=== PATIENT | male | born 1955 | race Caucasian/White ===

== ENCOUNTER 2022-07-06 16:18 | Emergency (ER) | payer MEDICARE, OTHER ==
[~2022-07-06] VITALS: Ht 177.8 cm; Wt 90.7 kg
[2022-07-06] MEDS ORDERED: NS IV 1000 ML 1,000 ML IV SCH (16:30)
[2022-07-06] MEDS ORDERED: CEFEPIME INJECTION 1,000 MG in NS (IVPB) 50 ML IV ONE (16:30)
[2022-07-06 16:41] LABS: BASOPHILS % (AUTO) 0 % (0-10); EOSINOPHILS # (AUTO) 0.1 10^3/uL (0.0-0.3); EOSINOPHILS % (AUTO) 2 % (0-10); HEMATOCRIT 41 % (40-54); HEMOGLOBIN 13.2 g/dL (13.3-17.7); LYMPHOCYTES # (AUTO) 1.8 10^3/uL (1.0-4.0); LYMPHOCYTES % (AUTO) 24 % (12-44); MEAN CORPUSCULAR HEMOGLOBIN 29 pg (25-34); MEAN CORPUSCULAR HGB CONC 33 g/dL (32-36); MEAN CORPUSCULAR VOLUME 90 fL (80-99); MEAN PLATELET VOLUME 10.9 fL (9.0-12.2); MONOCYTES # (AUTO) 0.8 10^3/uL (0.0-1.0); MONOCYTES % (AUTO) 11 % (0-12); NEUTROPHILS # (AUTO) 4.7 10^3/uL (1.8-7.8); NEUTROPHILS % (AUTO) 63 % (42-75); PLATELET COUNT 172 10^3/uL (130-400); WHITE BLOOD COUNT 7.5 10^3/uL (4.3-11.0)
--- NOTE | 2022-07-06 16:41 | ED Syncope ---
General Chief Complaint: Dizziness/Syncope Stated Complaint: FALL,HEAD INJ Source of Information: Patient, EMS, Family Exam Limitations: No Limitations History of Present Illness Date Seen by Provider: Jul 06, 2022 Time Seen by Provider: 16:19 Initial Comments 67-year-old male with past medical history of hypertension, hyperlipidemia, juo-bqpmzgv-uhrcnrhpt diabetes, and recent diagnosis of prostate cancer s/p robotic prostatectomy on 07/03/[address] Lopez in [place] coming in due to 2 syncopal episodes. The patient was discharged from the hospital the evening after the surgery the next day. He states he had some low blood pressures initially, but they came up prior to discharge. He has been on ciprofloxacin and will be on it for a total of a week. He is also taking hydrocodone for pain control which he had a pill earlier today. He was in the bathroom while his was emptying his Fernandes catheter bag. He was standing at this time, felt lightheaded, passed out, hit his head. His states he looked pale at that time. She sat up on the toilet after he came to, and then he had another syncopal episode. This time she was able to catch his head from hitting. He laid there until EMS arrived. They report his blood pressure was around 90/60, blood sugar 180, heart rate around 100, and oxygen saturation around 91% on room air. He states he has been feeling better from a pain perspective and thought he had been doing well prior to this episode. Denies any chest pain, shortness of breath, severe abdominal pain, nausea, vomiting, diarrhea, weakness, numbness that is focal, fever, or any other concerns. He does not take blood thinners, denies any lower extremity swelling or pain, no prior DVT or PE history, no hemoptysis. He also denies any cardiac or lung history. Allergies and Home Medications Allergies Coded Allergies: No Known Drug Allergies (Unverified , 05/20/19) Patient Home Medication List Home Medication List Reviewed: Yes Review of Systems Constitutional: No fever EENTM: no symptoms reported Respiratory: no symptoms reported Cardiovascular: syncope Gastrointestinal: no symptoms reported Genitourinary: no symptoms reported Musculoskeletal: no symptoms reported Skin: no symptoms reported Psychiatric/Neurological: See HPI All Other Systems Reviewed Negative Unless Noted: Yes Past Bydiijw-Bibpxi-Gpyxml Hx Patient Social History Tobacco Use?: No Smoking Status: Former Smoker Past Medical History Surgery/Hospitalization HX: Robotic prostatectomy, partial tongue removal, G-tube placement and later on removal Prior history of tongue cancer and currently being worked up for prostate cancer Surgeries: Yes Physical Exam Vital Signs Capillary Refill : Height, Weight, BMI Height: '" Weight: lbs. oz. kg; BMI Method: General Appearance: No Apparent Distress, WD/WN HEENT: PERRL/EOMI, Normal ENT Inspection, Pharynx Normal Neck: Full Range of Motion, Normal Inspection, Non Tender, Supple Cardiovascular: No Edema, Normal Peripheral Pulses, Tachycardia Respiratory: Chest Non Tender, Lungs Clear, Normal Breath Sounds, No Accessory Muscle Use, No Respiratory Distress Gastrointestinal: Normal Bowel Sounds, Non Tender, Soft; No Distended, No Guarding; Other (Surgical wounds appear clean, dry, intact, Fernandes is draining clear yellow urine with occasional blood) Back: Normal Inspection, No CVA Tenderness, No Vertebral Tenderness Extremities: Normal Capillary Refill, Normal Inspection, Normal Range of Motion, Non Tender, No Calf Tenderness, No Pedal Edema Neurologic/Psychiatric: Alert, Oriented x3, No Motor/Sensory Deficits, Normal Mood/Affect, 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 Cranial Nerves: Normal Hearing, Normal Speech Coordination/Gait: Normal Finger to Nose Motor/Sensory: No Motor Deficit, No Sensory Deficit, No Pronator Drift Skin: Normal Color, Warm/Dry Focused Exam Lactate Level 07/06/22 16:25: Lactic Acid Level 3.83*H Lactic Acid Level Laboratory Tests Test 07/06/22 16:25 Lactic Acid Level 3.83 MMOL/L (0.50-2.00) *H Progress/Results/Core Measures Results/Orders Lab Results Laboratory Tests Test 07/06/22 16:25 Range/Units White Blood Count 7.5 4.3-11.0 10^3/uL Red Blood Count 4.52 4.30-5.52 10^6/uL Hemoglobin 13.2 L 13.3-17.7 g/dL Hematocrit 41 40-54 % Mean Corpuscular Volume 90 80-99 fL Mean Corpuscular Hemoglobin 29 25-34 pg Mean Corpuscular Hemoglobin Concent 33 32-36 g/dL Red Cell Distribution Width 14.1 10.0-14.5 % Platelet Count 172 130-400 10^3/uL Mean Platelet Volume 10.9 9.0-12.2 fL Immature Granulocyte % (Auto) 1 % Neutrophils (%) (Auto) 63 42-75 % Lymphocytes (%) (Auto) 24 12-44 % Monocytes (%) (Auto) 11 0-12 % Eosinophils (%) (Auto) 2 0-10 % Basophils (%) (Auto) 0 0-10 % Neutrophils # (Auto) 4.7 1.8-7.8 10^3/uL Lymphocytes # (Auto) 1.8 1.0-4.0 10^3/uL Monocytes # (Auto) 0.8 0.0-1.0 10^3/uL Eosinophils # (Auto) 0.1 0.0-0.3 10^3/uL Basophils # (Auto) 0.0 0.0-0.1 10^3/uL Immature Granulocyte # (Auto) 0.0 0.0-0.1 10^3/uL Prothrombin Time 12.6 12.2-14.7 SEC INR Comment 0.9 0.8-1.4 Activated Partial Thromboplast Time 24 24-35 SEC Urine Color YELLOW Urine Clarity SLIGHTLY CLOUDY Urine pH 6.5 5-9 Urine Specific [place] 1.015 L 1.016-1.022 Urine Protein 2+ H NEGATIVE Urine Glucose (UA) 3+ H NEGATIVE Urine Ketones TRACE H NEGATIVE Urine Nitrite NEGATIVE NEGATIVE Urine Bilirubin NEGATIVE NEGATIVE Urine Urobilinogen 0.2 < = 1.0 MG/DL Urine Leukocyte Esterase 1+ H NEGATIVE Urine RBC (Auto) 3+ H NEGATIVE Urine RBC >100 H /HPF Urine WBC NONE /HPF Urine Squamous Epithelial Cells NONE /HPF Urine Crystals NONE /LPF Urine Bacteria MODERATE H /HPF Urine Casts PRESENT /LPF Urine Hyaline Casts 2-5 H /LPF Urine Mucus NEGATIVE /LPF Urine Culture Indicated NO Sodium Level 134 L 135-145 MMOL/L Potassium Level 4.0 3.6-5.0 MMOL/L Chloride Level 98 98-107 MMOL/L Carbon Dioxide Level 20 L 21-32 MMOL/L Anion Gap 16 H 5-14 MMOL/L Blood Urea Nitrogen 17 7-18 MG/DL Creatinine 0.87 0.60-1.30 MG/DL Estimat Glomerular Filtration Rate 96 BUN/Creatinine Ratio 20 Glucose Level 168 H 70-105 MG/DL Lactic Acid Level 3.83 *H 0.50-2.00 MMOL/L Calcium Level 8.9 8.5-10.1 MG/DL Corrected Calcium 9.4 8.5-10.1 MG/DL Total Bilirubin 0.6 0.1-1.0 MG/DL Aspartate Amino Transf (AST/SGOT) 20 5-34 U/L Alanine Aminotransferase (ALT/SGPT) 21 0-55 U/L Alkaline Phosphatase 104 40-136 U/L Troponin I < 0.30 <0.30 NG/ML Pro-B-Type Natriuretic Peptide 693.3 H <125.0 PG/ML Total Protein 6.1 L 6.4-8.2 GM/DL Albumin 3.4 3.2-4.5 GM/DL My Orders Orders - ETHEL FELIZ MD Ct Head/Cervical Spine Wo (07/06/22 16:28) Cbc With Automated Diff (07/06/22 16:28) Comprehensive Metabolic Panel (07/06/22 16:28) Blood Culture (07/06/22 16:28) Sputum Culture (07/06/22 16:28) Urinalysis (07/06/22 16:28) Urine Culture (07/06/22 16:28) Protime With Inr (07/06/22 16:28) Partial Thromboplastin Time (07/06/22 16:28) Ed Iv/Invasive Line Start (07/06/22 16:28) Ekg Tracing (07/06/22 16:28) Vital Signs Adult Sepsis Patie Q15M (07/06/22 16:28) O2 (07/06/22 16:28) Remove Rings In Anticipation O (07/06/22 16:28) Lactic Acid Analyzer (07/06/22 16:28) Ns Iv 1000 Ml (Sodium Chloride 0.9%) (07/06/22 16:30) Cefepime Injection (Maxipime Injection) (07/06/22 16:30) Probnp Fs (07/06/22 16:28) Troponin I Fs (07/06/22 16:28) Ct Rekha Chest/Noang Abd-Pelv W (07/06/22 16:28) Iohexol Injection (Omnipaque 350 Mg/Ml 1 (07/06/22 17:15) Received Contrast (Hold Metformin- Contr (07/06/22 17:15) Ns (Ivpb) (Sodium Chloride 0.9% Ivpb Bag (07/06/22 17:15) Heparin Drip 81860 Unit/500ml (Heparin (07/06/22 17:45) Heparin (Bolus Per Protocol) (Heparin (B (07/06/22 17:45) Initiate Heparin Full Protocol (07/06/22 17:41) Heparin Drip 60460 Unit/500ml (Heparin (07/06/22 18:10) Medications Given in ED Current Medications Medications Dose Ordered Sig/Leslye Route Start Time Stop Time Status Last Admin Dose Admin Cefepime HCl 1000 mg/Sodium Chloride 50 ml @ 100 mls/hr ONCE ONCE IV 07/06/22 16:30 07/06/22 16:59 DC 07/06/22 16:57 100 MLS/HR Iohexol 100 ml ONCE ONCE IV 07/06/22 17:15 07/06/22 17:16 DC 07/06/22 17:32 100 ML Sodium Chloride 100 ml ONCE ONCE IV 07/06/22 17:15 07/06/22 17:16 DC 07/06/22 17:32 100 ML Progress Progress Note : Progress Note 67-year-old male with above history coming in due to a syncopal episode x2. Discussed the case with his family members as well as EMS. The patient was hypotensive on presentation for EMS and for us and mildly tachycardic. He was also mildly hypoxic. Given his recent surgical history, my biggest concern would be for pulmonary embolism versus hemorrhage versus dehydration versus OK versus some other etiology. An IV was placed and basic labs were obtained including septic work-up. He was also given IV antibiotics and 1 L of IV fluids from EMS followed by [address] head and cervical spine ordered because of the fall. CTA chest ordered to rule out PE. CT abdomen pelvis also ordered given recent surgery to rule out large hemorrhage. His CTA chest on my interpretation shows multiple bilateral pulmonary emboli. The radiologist read was negative on his CT head, cervical spine, and nothing significant on the abdomen and pelvis. His CTA chest did indeed show bilateral pulmonary emboli with concerns for right heart strain. His EKG on my interpretation shows a right bundle branch block with no prior EKG to compare to. Clinically this is a massive PE given his hypotension with systolic blood pressure less than 90 here. Pressures did eventually improve after the full 2 L of IV fluids. He was given a heparin bolus followed by a drip. I contacted [facility] for transfer given he may need catheter directed thrombolysis and would need a larger center for this. Dr. Blanca Lagunas accepted him for further evaluation and management. We attempted to contact multiple flight crews, but not are available due to weather. He will go by ground EMS transport. Initial ECG Impression Date: Jul 06, 2022 Initial ECG Impression Time: 16:44 Initial ECG Rate: 98 Initial ECG Rhythm: Normal Sinus Comment Wide QRS with a right bundle branch block, no significant ST changes or T wave abnormalities, no prior EKG to compare to Diagnostic Imaging Diagonstic Imaging: CT (head, c spine, CTA chest, abd pelvis) Comments NAME: KAMLESH MCCOY [facility] REC#: [id number] PT STATUS: REG ER : 1955 PHYSICIAN: ETHEL FELIZ MD ADMIT DATE: 07/06/22/ER FS Signed Date of Exam:07/06/22 CT REKHA CHEST/NOANG ABD-PELV W INDICATION: surgery 3 days ago, hypoxic, hypotensive CTA chest, abdomen and pelvis Thin axial sections through the chest, abdomen and pelvis are obtained following intravenous contrast bolus. Multiplanar MIP images were reconstructed and reviewed. All CT scans use one or more of the following dose optimizing techniques: automated exposure control, MA and/or KvP adjustment based on patient size and exam type or iterative reconstruction. Comparison: CT of the head on same day. FINDINGS: Moderate burden acute pulmonary emboli involving the left main pulmonary artery and the bilateral segmental branches of the pulmonary artery. No associated pulmonary infarction. Subpleural reticulation within the lung bases likely representing minimal dependent atelectasis. Scarring within the lung apices. The pulmonary artery is normal in caliber. Aorta is normal. The heart is enlarged. There is evidence of right heart strain. No pericardial effusion. Included views of the abdomen demonstrates calcification within the left spleen. The osseous structures demonstrate no acute osseous findings. The liver is normal. Gallbladder is normal. Chronic calcification within the spleen. The pancreas is normal. The kidneys demonstrate normal enhancement. There is some mild left hydronephrosis. No hydronephrosis. The urinary bladder is decompressed with a Fernandes catheter. Bowel is nondistended. Normal appendix. There is trace free air within the peritoneum and moderate subcutaneous air in the abdomen. There is calcified aortoiliac atherosclerosis with chronic short segment dissection flap within the aorta. The osseous structures demonstrate no acute findings. IMPRESSION: Moderate burden pulmonary emboli involving the left main pulmonary artery diffusely involving the bilateral segmental and subsegmental branches. Enlargement of the right ventricle concerning for heart strain. Recommend correlation with cardiac enzymes. No pulmonary consolidation. Air or pneumoperitoneum and subcutaneous air may be seen with recent surgery. Recommend correlation with the surgical history and consider follow-up imaging if clinically appropriate. Dictated by: Dictated on workstation # [id number] Dict: 07/06/22 1755 Trans: 07/06/221802 [facility] [place] [id number] Interpreted by: ESTER ROBLES DO Electronically signed by: ESTER ROBLES DO 07/06/221802 [facility] [place] NAME: KAMLESH MCCOY [facility] REC#: [id number] PT STATUS: REG ER : 1955 PHYSICIAN: ETHEL FELIZ MD ADMIT DATE: 07/06/22/ER FS Signed Date of Exam:07/06/22 CT HEAD/CERVICAL SPINE WO PROCEDURE: CT head and CT cervical spine without contrast. TECHNIQUE: Multiple contiguous axial images were obtained through the brain and cervical spine without the use of intravenous contrast. Sagittal and coronal reformations through the cervical spine were then performed. Auto Exposure Controls were utilized during the CT exam to meet ALARA standards for radiation dose reduction. INDICATION: Syncopal episode. Head and neck pain. COMPARISON: None. FINDINGS: CT HEAD: No large acute territorial ischemia, mass or hemorrhage. No midline shift or mass effect. The ventricles, cortical sulci and basilar cisterns are patent and unremarkable. The calvarium is intact. The visualized paranasal sinuses are clear. CT CERVICAL SPINE: No acute fracture or dislocation is seen in the cervical spine. No focal osseous lesion. Vertebral body heights are well maintained. The craniocervical junction is well maintained. Mild degenerative changes are seen in the cervical spine with disc osteophyte complexes and uncovertebral arthropathy. Soft tissues of the neck are unremarkable. The included lungs are clear. IMPRESSION: 1. No hemorrhage or focal intra-axial mass. No CT evidence of large acute territorial ischemia. 2. No acute fracture or dislocation in the cervical spine. Dictated by: Dictated on workstation # [id number] Dict: 07/06/221742 Trans: 07/06/221752 [facility] [id number] Interpreted by: ADIRANNE DOTY DO Electronically signed by: ADRIANNE DOTY DO 07/06/221752 Critical Care Note Critical Care Start Time: 16:19 Stop Time: 18:30 Total Time (minutes) 67 Progress Patient was at significant risk for hemodynamic compromise and due to his diagnosis. I was frequently monitoring the patient, at his bedside reassessing him, discussing the case with him and his family, and discussing the case with physicians as well. All time billed for critical care was separate from procedures. Departure Impression Primary Impression: Acute massive pulmonary embolism Disposition: XFER SHT-TRM HOSP Condition: Stable Admissions Decision to Admit/Date: Jul 06, 2022 Time/Decision to Admit Time: 18:00 Transfer Transfer Reason: Exceeds level of care Transfer Facility: [facility] Method of Transfer: EMS Departure-Patient Inst. Referrals: SUDEEP VARMA APRN (PCP/Family) Primary Care Physician ETHEL FELIZ MD Jul 06, 2022 16:41
[2022-07-06 16:44] LABS: BILIRUBIN,URINE NEGATIVE (NEGATIVE); COLOR,URINE YELLOW; GLUCOSE, URINE (UA) 3+ (NEGATIVE); KETONES,URINE TRACE (NEGATIVE); LEUKOCYTE ESTERASE ,URINE 1+ (NEGATIVE); NITRITE,URINE NEGATIVE (NEGATIVE); PH,URINE 6.5 (5-9); PROTEIN,URINE 2+ (NEGATIVE)
[2022-07-06 16:48] LABS: BACTERIA,URINE MODERATE /HPF; CLARITY,URINE SLIGHTLY CLOUDY; RBC,URINE >100 /HPF
[2022-07-06 17:00] LABS: INR 0.9 (0.8-1.4); PROTHROMBIN TIME PATIENT 12.6 SEC (12.2-14.7)
[2022-07-06 17:02] LABS: ALANINE AMINOTRANSFERASE 21 U/L (0-55); ALBUMIN 3.4 GM/DL (3.2-4.5); ALKALINE PHOSPHATASE 104 U/L (40-136); BILIRUBIN,TOTAL 0.6 MG/DL (0.1-1.0); BUN/CREATININE RATIO 20; CALCIUM 8.9 MG/DL (8.5-10.1); CARBON DIOXIDE 20 MMOL/L (21-32); CHLORIDE 98 MMOL/L (98-107); CREATININE SERUM 0.87 MG/DL (0.60-1.30); GFR ESTIMATED 96; GLUCOSE 168 MG/DL (70-105); SODIUM 134 MMOL/L (135-145); TOTAL PROTEIN 6.1 GM/DL (6.4-8.2)
[2022-07-06] MEDS ORDERED: IOHEXOL 350 MG/ML 100 ML (OMNIPAQUE 350) VIAL IV ONE (17:15)
[2022-07-06] MEDS ORDERED: NS 100 ML (IVPB) BAG IV ONE (17:15)
[2022-07-06] MEDS ORDERED: HOLD METFORMIN - RECEIVED CONTRAST 20 ML VIAL IV SCH (17:15)
[2022-07-06] MEDS ORDERED: HEParin 1000 UNIT/ML (10ML VIAL) FOR BOLUS IV SCH (17:45)
[2022-07-06] MEDS ORDERED: HEParin DRIP 25000 UNIT/500ML 500 ML IV SCH (17:45)
--- NOTE | 2022-07-06 17:51 | Diagnostic Imaging Report ---
PROCEDURE: CT head and CT cervical spine without contrast. TECHNIQUE: Multiple contiguous axial images were obtained through the brain and cervical spine without the use of intravenous contrast. Sagittal and coronal reformations through the cervical spine were then performed. Auto Exposure Controls were utilized during the CT exam to meet ALARA standards for radiation dose reduction. INDICATION: Syncopal episode. Head and neck pain. COMPARISON: None. FINDINGS: CT HEAD: No large acute territorial ischemia, mass or hemorrhage. No midline shift or mass effect. The ventricles, cortical sulci and basilar cisterns are patent and unremarkable. The calvarium is intact. The visualized paranasal sinuses are clear. CT CERVICAL SPINE: No acute fracture or dislocation is seen in the cervical spine. No focal osseous lesion. Vertebral body heights are well maintained. The craniocervical junction is well maintained. Mild degenerative changes are seen in the cervical spine with disc osteophyte complexes and uncovertebral arthropathy. Soft tissues of the neck are unremarkable. The included lungs are clear. IMPRESSION: 1. No hemorrhage or focal intra-axial mass. No CT evidence of large acute territorial ischemia. 2. No acute fracture or dislocation in the cervical spine. Dictated by: Dictated on workstation # [id number]
--- NOTE | 2022-07-06 18:04 | Diagnostic Imaging Report ---
INDICATION: surgery 3 days ago, hypoxic, hypotensive CTA chest, abdomen and pelvis Thin axial sections through the chest, abdomen and pelvis are obtained following intravenous contrast bolus. Multiplanar MIP images were reconstructed and reviewed. All CT scans use one or more of the following dose optimizing techniques: automated exposure control, MA and/or KvP adjustment based on patient size and exam type or iterative reconstruction. Comparison: CT of the head on same day. FINDINGS: Moderate burden acute pulmonary emboli involving the left main pulmonary artery and the bilateral segmental branches of the pulmonary artery. No associated pulmonary infarction. Subpleural reticulation within the lung bases likely representing minimal dependent atelectasis. Scarring within the lung apices. The pulmonary artery is normal in caliber. Aorta is normal. The heart is enlarged. There is evidence of right heart strain. No pericardial effusion. Included views of the abdomen demonstrates calcification within the left spleen. The osseous structures demonstrate no acute osseous findings. The liver is normal. Gallbladder is normal. Chronic calcification within the spleen. The pancreas is normal. The kidneys demonstrate normal enhancement. There is some mild left hydronephrosis. No hydronephrosis. The urinary bladder is decompressed with a Fernandes catheter. Bowel is nondistended. Normal appendix. There is trace free air within the peritoneum and moderate subcutaneous air in the abdomen. There is calcified aortoiliac atherosclerosis with chronic short segment dissection flap within the aorta. The osseous structures demonstrate no acute findings. IMPRESSION: Moderate burden pulmonary emboli involving the left main pulmonary artery diffusely involving the bilateral segmental and subsegmental branches. Enlargement of the right ventricle concerning for heart strain. Recommend correlation with cardiac enzymes. No pulmonary consolidation. Air or pneumoperitoneum and subcutaneous air may be seen with recent surgery. Recommend correlation with the surgical history and consider follow-up imaging if clinically appropriate. Dictated by: Dictated on workstation # [id number]
[2022-07-06] MEDS ORDERED: HEParin DRIP 25000 UNIT/500ML 500 ML IV ONE (18:10)
[2022-07-06 19:31] VITALS: BP 133/77
== END 2022-07-06 19:02 | disposition short-term general hospital (02) ==
LOC: EDUNIT# 16:18 → ER FS 16:21
DX: I26.99 Other pulmonary embolism without acute cor pulmonale (principal); I95.9 Hypotension, unspecified; R09.02 Hypoxemia; R55 Syncope and collapse; I10 Essential (primary) hypertension; E11.9 Type 2 diabetes mellitus without complications; Z87.891 Personal history of nicotine dependence; W18.30XA Fall on same level, unspecified, initial encounter; W22.8XXA Striking against or struck by other objects, initial encounter; Y92.002 Bathroom of unspecified non-institutional (private) residence as the place of occurrence of the external cause
CPT/HCPCS: 36415; 70450; 71275; 72125; 74177; 80053; 81000; 83605; 83880; 84484; 85025; 85610; 85730; 87040; 87088; 93005; Q9967